=== PATIENT | female | born 1965 | race Caucasian/White ===

== ENCOUNTER 2018-09-16 14:13 | Emergency (ER) | payer MEDICAID ==
[~2018-09-16] VITALS: Ht 165.1 cm; Wt 71.4 kg
[~2018-09-16 14:13] MED LIST: NO MEDS
[2018-09-16 14:31] VITALS: Ht 165.1 cm; Wt 71.4 kg
[2018-09-16] MEDS ORDERED: CEPH-443 PO (18:40)
[2018-09-16] MEDS ORDERED: IBUP-1561 PO (18:40)
--- NOTE | 2018-09-16 18:42 | ERD ---
ER Documentation Chief Complaint Chief Complaint right breast redness/lump x 4 days ROS All systems reviewed and are negative except as per history of present illness. Medications Home Meds Active Scripts Ibuprofen* (Motrin*) 400 Mg Tab, 400 MG PO Q6H PRN for PAIN AND OR ELEVATED TEM P, #30 TAB Prov:LYNNETTE HARMON DO 09/16/18 Cephalexin* (Keflex*) 500 Mg Capsule, 500 MG PO QID for 5 Days, #20 CAP Prov:LYNNETTE HARMON DO 09/16/18 Reported Medications [No Meds] No Conflict Check 03/24/13 Allergies Allergies: Coded Allergies: No Known Allergy (Unverified , 03/24/13) PMhx/Soc Medical and Surgical Hx: pt denies Medical Hx, pt denies Surgical Hx Hx Alcohol Use: No Hx Substance Use: No Hx Tobacco Use: No Smoking Status: Never smoker Physical Exam Vitals Vital Signs Date Temp Pulse Resp B/P (MAP) Pulse Ox O2 O2 Flow FiO2 Time Delivery Rate 09/16/18 99.5 72 18 151/75 96 14:31 (100) Physical Exam Const: No acute distress Head: Atraumatic Eyes: Normal Conjunctiva ENT: Normal External Ears, Nose and Mouth. Neck: Full range of motion. No meningismus. Resp: Clear to auscultation bilaterally Cardio: Regular rate and rhythm, no murmurs Abd: Soft, non tender, non distended. Normal bowel sounds Skin: No petechiae or rashes Back: No midline or flank tenderness Ext: No cyanosis, or edema Neur: Awake and alert Psych: Normal Mood and Affect Departure Diagnosis: Primary Impression: Cellulitis of breast Condition: Fair Patient Instructions: Cellulitis Referrals: [facility] YOU HAVE RECEIVED A MEDICAL SCREENING EXAM AND THE RESULTS INDICATE THAT YOU DO NOT HAVE A CONDITION THAT REQUIRES URGENT TREATMENT IN THE EMERGENCY DEPARTMENT. FURTHER EVALUATION AND TREATMENT OF YOUR CONDITION CAN WAIT UNTIL YOU ARE SEEN IN YOUR DOCTORS OFFICE WITHIN THE NEXT 1-2 DAYS. IT IS YOUR RESPONSIBILITY TO MAKE AN APPOINTMENT FOR FOLOW-UP CARE. IF YOU HAVE A PRIMARY DOCTOR --you should call your primary doctor and schedule an appointment IF YOU DO NOT HAVE A PRIMARY DOCTOR YOU CAN CALL OUR PHYSICIAN REFERRAL HOTLINE AT IF YOU CAN NOT AFFORD TO SEE A PHYSICIAN YOU CAN CHOSE FROM THE FOLLOWING [facility] [address] [place] [facility] [address] [facility] [facility] [address] [facility] [address] [facility] [address]. [facility] [address] Additional Instructions: Llame al doctor MAANA y issac rober ESTELA PARA DENTRO DE 1-2 ARIAS.Dgale a la secretaria que nosotros le instruimos hacer esta estela.Avise o llame si torres condicin se empeora antes de la estela. Regresa aqui si peor o no mejor. if symptoms do not improve in 2-3 days, need ultrasoud of breast area. LYNNETTE HARMON DO Sep 16, 2018 18:42
[2018-09-16 18:51] VITALS: BP 147/78; PULSE 89; RESP 19
== END 2018-09-16 18:52 | disposition home or self-care (01) ==
LOC: FTE 14:13
DX: N61.0 Mastitis without abscess (principal)
CPT/HCPCS: 99283